=== PATIENT | female | born 1965 | race Caucasian/White ===

== ENCOUNTER 2021-05-11 15:17 | Emergency (ER) | payer BC ==
[2021-05-11] MEDS ORDERED: diphenhydrAMINE 50 MG/ML VIAL ONE (15:59)
[2021-05-11] MEDS ORDERED: Ketorolac Tromethamine 30 MG/ML VIAL ONE (15:59)
[2021-05-11] MEDS ORDERED: Metoclopramide HCl 10 MG/2 ML VIAL ONE (15:59)
[2021-05-11] MEDS ORDERED: Sodium Chloride 0.9% 1,000 ML ONE (15:59)
[2021-05-11] MEDS ORDERED: Oxymetazoline HCl 0.05% (30 ML BOT) ONE (16:00)
[2021-05-11] MEDS ORDERED: methylPREDNISolone Sod Succ/PF 125 MG/2 ML VIAL ONE (17:32)
[2021-05-11] MEDS ORDERED: Magnesium 2 GM/50 ML BAG (IN WATER) ONE (17:37)
== END 2021-05-11 19:00 | disposition home or self-care (01) ==
LOC: NAV ERS 15:17
DX: R51.9 Headache, unspecified (principal); F17.210 Nicotine dependence, cigarettes, uncomplicated
CPT/HCPCS: 70450; 96365; 96367; 96375; J1200; J1885; J2765; J2930; J3475; J7050